=== PATIENT | female | born 1990 | race Caucasian/White ===

== ENCOUNTER 2024-01-28 12:35 | Emergency (ER) | payer MEDICAID ==
[2024-01-28] MEDS: Famotidine 20 MG Tab PO ONE (13:21)
[2024-01-28] MEDS: methylPREDNISolone Sodium Succinate 125 MG/2 ML SDV IVPUSH ONE (13:21)
== END 2024-01-28 15:04 | disposition home or self-care (01) ==
LOC: JP.ED 12:35
DX: T78.3XXA Angioneurotic edema, initial encounter (principal); J45.909 Unspecified asthma, uncomplicated; F17.210 Nicotine dependence, cigarettes, uncomplicated; Z79.899 Other long term (current) drug therapy; Z91.018 Allergy to other foods
CPT/HCPCS: 96374; 99284-25; A9270-GY; J2919